=== PATIENT | male | born 1985 | race Caucasian/White ===

== ENCOUNTER 2016-12-21 03:12 | Emergency (ER) | payer OTHER ==
[2016-12-21 03:21] VITALS: BP 121/56; PULSE 63; RESP 18; TEMP 97.7; O2SAT 96
[2016-12-21 05:47] VITALS: BP 120/63; PULSE 75; RESP 18; TEMP 97; O2SAT 100
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
--- NOTE | 2016-12-21 14:03 | PD ---
Physical Exam Time Seen by Provider: 14:00 LUX Rodrigez evaluated the patient, lifted the Kirkpatrick act and the patient will be discharged home. Data Data Last Documented VS Vital Signs Date Time Temp Pulse Resp B/P (MAP) Pulse Ox O2 Delivery O2 Flow Rate FiO2 12/21/16 05:47 97.0 75 18 120/63 (82) 100 Room Air Orders Orders Psych Screen (12/21/16 03:21) Diet Regular Basic (12/21/16 Breakfast) Diet Regular Basic (12/21/16 Lunch) MDM Supervised Visit with RENÉE: Yes Narrative Course LUX Williamson has evaluated the patient, lifted the Kirkpatrick act and the patient will be discharged home. Patient contracts safety. Denies suicidal or homicidal ideations. Patient will be provided community resource packet to [facility] for follow-up. Has friends and family for support. Patient is medically cleared for discharge. Diagnosis Primary Impression: Substance abuse Referrals: [facility] Psychiatrist [facility] Additional Instruction: Stop using drugs. You can seek treatment at [facility] for detox and drug treatment Contract safety to your self and others Follow-up with psychiatry Follow-up with primary care provider Follow-up with [facility] Return to the emergency department immediately with worsening of symptoms Disposition: 01 DISCHARGE HOME Condition: Stable Coretta Sidhu Dec 21, 2016 14:03
[2016-12-21 15:45] VITALS: BP 120/77; TEMP 98
== END 2016-12-21 16:15 | disposition home or self-care (01) ==
LOC: NEPJ 03:12
DX: F19.10 Other psychoactive substance abuse, uncomplicated (principal); F43.25 Adjustment disorder with mixed disturbance of emotions and conduct; Z87.891 Personal history of nicotine dependence
CPT/HCPCS: 99284